=== PATIENT | female | born 2005 | race African-American/Black ===

== ENCOUNTER 2025-04-21 17:33 | Emergency (ER) | payer MEDICAID ==
[~2025-04-21] VITALS: Ht 167.6 cm; Wt 72.2 kg
[2025-04-21 18:21] VITALS: PULSE 112; RESP 13; O2SAT 96
[2025-04-21 19:28] LABS: Hematocrit 42.6 % (36.0-46.0); Hemoglobin 14.2 g/dL (12.2-16.2); Mean Corpuscular Hemoglobin 27.5 pg (28.0-32.0); Mean Corpuscular Volume 82.6 fL (80.0-100.0); Nucleated Red Blood Cells % 0.1 %
[2025-04-21 19:34] LABS: Chloride 105 mmol/L (98-107); Potassium 4.1 mmol/L (3.5-5.1); Sodium 138 mmol/L (136-145)
[2025-04-21 19:35] LABS: Anion Gap 11 (5-15); Calcium 10.2 mg/dL (8.7-10.4); Carbon Dioxide 22 mmol/L (20-31)
[2025-04-21 19:40] LABS: BUN/Creatinine Ratio 13.0 (10.0-20.0); Blood Urea Nitrogen 13 mg/dL (9-23)
[2025-04-21 19:41] LABS: Glucose 127 mg/dL (74-106)
[2025-04-21 19:42] LABS: Acetaminophen < 2.0 UG/ML (10.0-20.0); Salicylate < 3.0 mg/dL (-30)
--- NOTE | 2025-04-21 19:55 | ED.PDOC ---
Psychiatric HPI Comments 19 year-old female presents to the ED for overdose with symptoms of N/V S/P ingestion of Ibuprofen around 1700 today. Patient reports ingesting an unknown quantity of prescribed Ibuprofen medication, roughly 5+ capsules. Patient reports SI, with intent to harm herself. Patient is emotional upon evaluation at this time, but denies further symptoms of dizziness, weakness, fever, abdominal pain, or chest pain. Chief Complaint: Overdose Time Seen by MD: 18:45 Reviewed Notes: Medications, Allergies Information Source: Patient Mode of Arrival: Ambulatory Presents with: Suicidal Ideation Associated signs and symptoms: Nausea, Vomiting Past Medical History PAST MEDICAL HISTORY: Denies Surgical History: Denies all surgeries UNDERWRITING SPECIALIST History: No Pertinent UNDERWRITING SPECIALIST History Family History Family History: Reviewed,noncontributory to illness, No family hx of Cancer, No family hx of DM, No family hx of Heart deejay, No family hx of HTN, No family hx ofKidney deejay, No family hx of Liver deejay, No family hx of Lung deejay, No family hx of Stroke Social History Smoker: Non-Smoker Alcohol: Denies ETOH Use Drugs: Denies Drug Use Lives In: Home Constitutional: denies: chills, diaphoresis, fatigue, fever, malaise, sweats, weakness, others EENTM: denies: blurred vision, double vision, ear bleeding, ear discharge, ear drainage, ear pain, ear ringing, eye pain, eye redness, hearing loss, mouth pain, mouth swelling, nasal discharge, nose bleeding, nose congestion, nose pain, photophobia, tearing, throat pain, throat swelling, voice changes, others Respiratory: denies: cough, hemoptysis, orthopnea, SOB at rest, shortness of breath, SOB with excertion, stridor, wheezing, others Cardiovascular: denies: chest pain, dizzy spells, diaphoresis, Dyspnea on exertion, edema, irregular heart beat, left arm pain, lightheadedness, palpitations, PND, syncope, others Gastrointestinal: reports: nausea, vomiting; denies: abdomen distended, abdominal pain, blood streaked bowels, constipated, diarrhea, dysphagia, difficulty swallowing, hematemesis, melena, poor appetite, poor fluid intake, rectal bleeding, rectal pain, others Genitourinary: denies: abnormal vagina bleeding, burning, dyspareunia, dysuria, flank pain, frequency, hematuria, incontinence, pain, , vagina discharge, urgency, others Neurological: denies: dizziness, fainting, headache, left sided numbness, left sided weakness, numbness, paresthesia, pre-existing deficit, right sided numbness, right sided weakness, seizure, speech problems, tingling, tremors, weakness, others Musculoskeletal: denies: back pain, gout, joint pain, joint swelling, muscle pain, muscle stiffness, neck pain, others Integumetry: denies: bruises, change in color, change in hair/nails, dryness, laceration, lesions, lumps, rash, wounds, others Allergic/Immunocompromised: denies: Difficulty Healing, Frequent Infections, Hives, Itching, others Hematologic/Lymphatic: denies: anemia, blood clots, easy bleeding, easy bruising, swollen glands, others Endocrine: denies: excessive hunger, excessive sweating, excessive thirst, excessive urination, flushing, intolerance to cold, intolerance to heat, unexplained weight gain, unexplained weight loss, others Psychiatric: reports: suicidal; denies: anxiety, bipolar disorder, depression, hopeless, panic disorder, schizophrenia, sleepless, others All Other Systems: Reviewed and Negative Physical Exam Exam Comments Patient appears emotional General Appearance: Normal HEENT: Normal ENT Inspection, Pharynx Normal, TMs Normal Neck: Full Range of Motion, Non-Tender, Normal, Normal Inspection Respiratory: Chest Non-Tender, Lungs Clear, No Accessory Muscle Use, No Respiratory Distress, Normal Breath Sounds Cardiovascular: No Edema, No JVD, No Murmur, No Gallop, Normal Peripheral Pulses, Regular Rate/Rhythm Breast Exam: Deferred Gastrointestinal: No Organomegaly, Non Tender, No Pulsatile Mass, Normal Bowel Sounds, Soft Genitalia: Deferred Pelvic: Deferred Rectal: Deferred Extremities: No calf tenderness, Normal capillary refill, Normal inspection, Normal range of motion, Non-tender, No pedal edema Musculoskeletal : Apperance: Normal Neurologic: Alert, economics analyst II-XII nml as Tested, No Motor Deficits, Normal Affect, Normal Mood, No Sensory Deficits Cerebellar Function: Normal Reflexes: Normal Skin: Dry, Normal Color, Warm Lymphatic: No Adenopathy Was a procedure done? Was a procedure done?: No Psych Differential Dx OD Differential Dx: Anxiety, Depression, Drug Overdose, Accidental, Substance Abuse, Suicidal Attempt X-Ray, Labs, Meds, VS Vital Signs Date Time Temp Pulse Resp B/P (MAP) Pulse Ox O2 Delivery O2 Flow Rate FiO2 04/22/25 11:30 97.3 110 16 110/71 (84) 95 97.3 04/22/25 07:25 98.0 110 12 101/78 (86) 98.0 04/22/25 07:25 110 12 Room Air* 0 04/21/25 22:52 101 21 100/74 (83) 97 04/21/25 19:30 98.6 109 14 94/69 (77) 96 98.6 04/21/25 19:30 Room Air* 0 21 04/21/25 19:11 113 04/21/25 18:29 102 04/21/25 18:21 112 13 96 Room Air* 0 04/21/25 18:20 97.8 112 13 106/65 (79) 96 97.8 04/21/25 17:36 98.1 124 18 126/93 97 98.1 Lab Test 04/21/25 23:06 04/21/25 19:09 Range/Units Urine Test Negative Negative Urine Opiates Screen Neg NEGATIVE Urine Fentanyl Screen Neg NEGATIVE Urine Barbiturates Screen Neg NEGATIVE Urine Phencyclidine Screen Neg NEGATIVE Urine Amphetamines Screen Neg NEGATIVE Urine Benzodiazepines Screen Neg NEGATIVE Urine Cocaine Screen Neg NEGATIVE Urine Cannabinoids Screen Neg NEGATIVE White Blood Count 7.2 4.4-10.8 10^3/uL Red Blood Count 5.15 4.0-5.20 10^6/uL Hemoglobin 14.2 12.2-16.2 g/dL Hematocrit 42.6 36.0-46.0 % Mean Corpuscular Volume 82.6 80.0-100.0 fL Mean Corpuscular Hemoglobin 27.5 L 28.0-32.0 pg Mean Corpuscular Hemoglobin Concent 33.3 32.0-36.0 g/dL Red Cell Distribution Width 14.9 H 11.8-14.3 % Platelet Count 373 140-450 10^3/uL Mean Platelet Volume 6.9 6.9-10.8 fL Neutrophils (%) (Auto) 77.5 37.0-80.0 % Lymphocytes (%) (Auto) 12.8 10.0-50.0 % Monocytes (%) (Auto) 8.4 0.0-12.0 % Eosinophils (%) (Auto) 0.3 0.0-7.0 % Basophils (%) (Auto) 1.0 0.0-2.0 % Neutrophils # (Auto) 5.6 1.6-8.6 10 ^3/uL Lymphocytes # (Auto) 0.9 0.4-5.4 10 ^3/uL Monocytes # (Auto) 0.6 0-1.3 10 ^3/uL Eosinophils # (Auto) 0 0-0.8 10 ^3/uL Basophils # (Auto) 0.1 0-0.2 10 ^3/uL Nucleated Red Blood Cells 0.1 % Sodium Level 138 136-145 mmol/L Potassium Level 4.1 3.5-5.1 mmol/L Chloride Level 105 98-107 mmol/L Carbon Dioxide Level 22 20-31 mmol/L Anion Gap 11 5-15 Blood Urea Nitrogen 13 9-23 mg/dL Creatinine 1.00 0.550-1.02 mg/dL Glomerular Filtration Rate Calc 83 >90 mL/min BUN/Creatinine Ratio 13.0 10.0-20.0 Serum Glucose 127 H 74-106 mg/dL Calcium Level 10.2 8.7-10.4 mg/dL Salicylates Level < 3.0 -30 mg/dL Acetaminophen Level < 2.0 L 10.0-20.0 UG/ML Plasma/Serum Blood Alcohol < 3.0 <10 mg/dL X-Ray, Labs, Meds, VS Comment Previous history reviewed: N/A The following tests were ordered, and results were reviewed by me: CBC, CMP, Test, Blood Alcohol, Psych Consult Additional Information was gathered from interviewing the following independent historians: N/A I reviewed and agreed with the following test results read by other providers: N/A I discussed treatment and results with medical personnel and: Patient Comprehensive systems review obtained and negative except for what is stated in the HPI. Time of 1ST Reevaluation: 20:24 Reevaluation 1ST: Unchanged Patient Education/Counseling: Diagnosis, Treatment Family Education/Counseling: No Family Present Comments Patient reportedly took an unknown amount of Motrin. She has remained stable without any signs of GI discomfort. Her drug screen, alcohol level, aspirin level, acetaminophen level were all negative. Patient had received for her tele psych evaluation. The recommendation is to continue to observe the patient here and have another evaluation by tele psych in the morning. Patient is currently restful without any active symptoms. I was signed this patient out to Dr. Chandra at change of shift pending tele psych reassessment pt was signed out to Kyle Chandra. i reviewed the chart and according to RN documentations, pt left AMA Departure 1 Departure Time of Disposition: 21:19 Impression: Primary Impression: Suicidal behavior Disposition: LEFT AGAINST MEDICAL ADVICE Condition: Other (unknown) Discharged With: Self, Relative (Sibling) Critical Care Note Critical Care Time?: Yes (55 min-critical care time only) Critical care comment: Total critical care time: Approximately 55 minutes Due to a high probability of clinically significant, life threatening deterioration, the patient required my highest level of preparedness to int ervene emergently and I personally spent this critical care time directly and personally managing the patient. This critical care time included obtaining a history; examining the patient; pulse oximetry; ordering and review of studies; arranging urgent treatment with development of a management plan; evaluation of patient's response to treatment; frequent reassessment; and, discussions with other providers. This critical care time was performed to assess and manage the high probability of imminent, life-threatening deterioration that could result in multi-organ failure. It was exclusive of separately billable procedures and treating other patients. Stability Stability form required: No Heart Score Heart Score: Heart Score Response (Comments) Value History N/A 0 EKG N/A 0 Age N/A 0 Risk Factors N/A 0 Troponin N/A 0 Total 0 I personally scribed for MALINA GARNER MD (ARIELA) on 04/21/25 at 19:55. Electr onically submitted by Aishwarya Edwards (SHAHANA). I personally scribed for MALINA GARNER MD (CICI) on 04/21/25 at 19:56. Lora ctronically submitted by Aishwarya Edwards (SHAHANA). I personally scribed for MALINA GARNER MD (CICI) on 04/21/25 at 20:26. Electronically submitted by Aishwarya Edwards (SHAHANA). I personally scribed for MALINA GARNER MD (CICI) on 04/21/25 at 20:45. Electronically submitted by Aishwarya Edwards (SHAHANA). MALINA GARNER MD Apr 21, 2025 19:55
[2025-04-21 23:30] LABS: Barbiturate Scree,Urine Neg (NEGATIVE)
[2025-04-21 23:32] LABS: Amphetamine Screen, Urine Neg (NEGATIVE); Benzodiazephine Screen, Urine Neg (NEGATIVE); Cannabinoid Screen, Urine Neg (NEGATIVE); Cocaine Screen, Urine Neg (NEGATIVE); Opiate Scree,Urine Neg (NEGATIVE); Phencyclidine Screen, Urine Neg (NEGATIVE)
--- NOTE | 2025-04-22 01:39 | DVHINCON2 ---
Date of Service if different f: Apr 22, 2025 Time of Service: 00:47 Consult Consult Note PSYCHIATRY ED NEW CONSULT HPI: 19 yo pt with PPH of anxiety presents to ED for safety, psychiatric stabilization, and possible med initiation in setting of SA via intentional drug OD of ~ 7 tabs of ibuprofen 600 mg. Psychiatry consulted for safety evaluation and recommendations in context of current presentation Pt reports over past several weeks experiencing worsening depressed mood, negative thoughts, loss of interest, decreased energy, low self-worth, amotivation, emotional dysregulation, anxiety, intrusive thoughts, and irritability. Also intermittent fleeting SI that worsened today resulting in SA via intentional drug OD of ~ 7 tabs of ibuprofen 600 mg. Identifies primary stress as strained r/s with BF, worries about lack of housing, limited support system, and financial strains. Denies HI/AVH/paranoia/catatonic/manic/dissociative symptoms Does not have active outpt MH services established at this time Currently not on any psychotropic agents ESTEVAN hx: Denies ETOH, THC or IDU SH: Single, no children, employed as food prep worker, lives with BF/family, some support system noted (immediate family). No known trauma hx FH: Denies FH of psych hospitalizations, suicide attempts, or completed suicides PMH: No acute medical/chronic pain issues, hx of seizures/TBI, HIV/hep C, cardiac dz, or recent head injuries, NKDA Denies hx of SIB/SA/PSG or prior psych hospitalizations/5150 holds. Denies history of violence, aggression, or assaultive behaviors. Denies any legal problems. Does not have access to firearms. Identifies self as PPF MSE: General Appearance/Behavior: Alert/awake; appears stated age, piercings/tattoos, fair grooming/hygiene; calm/polite and cooperative, fair eye contact, no PMA/PMR Speech: coherent, rrr Thought Process: L/L/GD Thought Content: Abnormal Thoughts/Perceptions: denies dissociative symptoms Homicidality / Violent Thoughts: adamantly denies HI Suicidality: adamantly denies SI Hallucinations: denies AVTH Delusions: denies paranoia, persecutory, or grandiose delusions Obsessions /compulsions: None Judgment/Insight: fair/fair Mood & Affect: "okay" with mood-congruent, somewhat restricted/appropriate Orientation: oriented x 3 Attention/Concentration: appears intact Cognition: grossly intact Assessment: 19 yo pt with PPH of anxiety presents to ED for safety, psychiatric stabilization, and possible med initiation in setting of SA via intentional drug OD of ~ 7 tabs of ibuprofen 600 mg S/p concerning SA, medically cleared in ED Currently denies SI/HI/AVH. No hx of SA/SIB/violence or prior psych hospitalizations is reassuring. No overt manic, psychotic, MDD, cognitive, dissociative, panic, OCD, PTSD, or somatic symptoms noted. Does not show any signs of immediate danger to self/others or GD that would necessitate 5150 or involuntary psych admission. However offered voluntary psych hospitalization but pt declined at this time, rather expressed interest in further ED observation/reevaluation in AM to ensure SI does not resurface upon awakening Hence, recommend overnight ED observation and psych reassessment in AM WITH FAMILY MEMBER or BF at bedside to assess for ongoing safety/psychiatric stabilization and to determine if higher level of care (i.e inpt psych hospitalization) or 5150 hold is warranted If no acute/problematic events overnight and pt continues to show improved J/I, appears hopeful and future-oriented, participates in safety plan, and continues to deny any SI and no safety concerns noted/expressed by family member/BF, can consider discharge back to current residence with resources for therapy Psychotropic med initiation not clinically indicated at this time Pt verbalized understanding and is receptive to above tx plan Primary Diagnosis: Adjustment disorder with depressed mood and anxiety. Depressive disorder unspecified. THC use d/o This case was discussed with ED nurse/provider and all parties in agreement with above tx plan Beny Doll MD Plan discussed with: Patient BENY DOLL MD Apr 22, 2025 01:39
[2025-04-22 07:25] VITALS: PULSE 110; RESP 12
--- NOTE | 2025-04-22 10:04 | ECG ---
[facility] Test Date: 2025-04-21 Test Time: 18:29:58 Pat Name: SISSY PROCTOR Department: ED Room: Gender: F Senior Courtroom Clerk: : 2005 Requested By: MALINA GARNER Order Number: [id number] Reading MD: Nathanael Slater Measurements Intervals [place] Rate: 102 P: 51 NC: 153 QRS: 66 QRSD: 75 T: 33 QT: 318 QTc: 415 Interpretive Statements Sinus tachycardia Electronically Signed On 04-22-2025 15:28:57 PST by Nathanael Slater Please click the below link to view image of tracing.
[2025-04-22 11:30] VITALS: BP 110/71; PULSE 110; RESP 16; TEMP 97.3; O2SAT 95
--- NOTE | 2025-04-22 13:22 | DVHINCON2 ---
Date of Service if different f: Apr 22, 2025 Time of Service: 13:19 Consultation ([facility]) Labs Laboratory Tests Test 04/21/25 19:09 04/21/25 23:06 White Blood Count 7.2 10^3/uL (4.4-10.8) Red Blood Count 5.15 10^6/uL (4.0-5.20) Hemoglobin 14.2 g/dL (12.2-16.2) Hematocrit 42.6 % (36.0-46.0) Mean Corpuscular Volume 82.6 fL (80.0-100.0) Mean Corpuscular Hemoglobin 27.5 pg (28.0-32.0) Mean Corpuscular Hemoglobin Concent 33.3 g/dL (32.0-36.0) Red Cell Distribution Width 14.9 % (11.8-14.3) Platelet Count 373 10^3/uL (140-450) Mean Platelet Volume 6.9 fL (6.9-10.8) Neutrophils (%) (Auto) 77.5 % (37.0-80.0) Lymphocytes (%) (Auto) 12.8 % (10.0-50.0) Monocytes (%) (Auto) 8.4 % (0.0-12.0) Eosinophils (%) (Auto) 0.3 % (0.0-7.0) Basophils (%) (Auto) 1.0 % (0.0-2.0) Neutrophils # (Auto) 5.6 10 ^3/uL (1.6-8.6) Lymphocytes # (Auto) 0.9 10 ^3/uL (0.4-5.4) Monocytes # (Auto) 0.6 10 ^3/uL (0-1.3) Eosinophils # (Auto) 0 10 ^3/uL (0-0.8) Basophils # (Auto) 0.1 10 ^3/uL (0-0.2) Nucleated Red Blood Cells 0.1 % Sodium Level 138 mmol/L (136-145) Potassium Level 4.1 mmol/L (3.5-5.1) Chloride Level 105 mmol/L (98-107) Carbon Dioxide Level 22 mmol/L (20-31) Anion Gap 11 (5-15) Blood Urea Nitrogen 13 mg/dL (9-23) Creatinine 1.00 mg/dL (0.550-1.02) Glomerular Filtration Rate Calc 83 mL/min (>90) BUN/Creatinine Ratio 13.0 (10.0-20.0) Serum Glucose 127 mg/dL (74-106) Calcium Level 10.2 mg/dL (8.7-10.4) Salicylates Level < 3.0 mg/dL (-30) Acetaminophen Level < 2.0 UG/ML (10.0-20.0) Plasma/Serum Blood Alcohol < 3.0 mg/dL (<10) Urine Test Negative (Negative) Urine Opiates Screen Neg (NEGATIVE) Urine Fentanyl Screen Neg (NEGATIVE) Urine Barbiturates Screen Neg (NEGATIVE) Urine Phencyclidine Screen Neg (NEGATIVE) Urine Amphetamines Screen Neg (NEGATIVE) Urine Benzodiazepines Screen Neg (NEGATIVE) Urine Cocaine Screen Neg (NEGATIVE) Urine Cannabinoids Screen Neg (NEGATIVE) Vitals Vital Signs Date Time Temp Pulse Resp B/P (MAP) Pulse Ox O2 Delivery O2 Flow Rate FiO2 04/22/25 11:30 97.3 110 16 110/71 (84) 95 97.3 04/22/25 07:25 Room Air* 0 21 PSYCHIATRY FOLLOW UP NOTE SUBJECTIVE On reevaluation, pt says she had been feeling down relating to financial stress and feeling she has few people she can count on. She felt acutely depressed and suicidal just a day. She had not done research. She did believe taking the 7 tabs or Ibuprofen would kill her. Pt continues to feel sad. She denies neo SI in the moment, but know she needs help, and wants help. Pt denies use of drugs and alcohol. She has no current established OP care or therapy. She cannot completely contract for her safety if discharged. She does deny access to firearms. Pts boyfriend is at bedside. He is concerned for her safety. He says she has recently been expressing SI quite a bit. He is not sure if she will be safe if discharged from the hospital. OBJECTIVE Patient is an adult woman, awake and alert, with fair grooming. She is coop erative and appropriately engaged. Speech is normal in rate, volume, and prosody. Mood is described as sad/down, with affect dysphoric and congruent. Thought process is linear and goal-directed. Thought content notable for recent suicidal ideation and a recent suicide attempt via ingestion of 7 ibuprofen tablets with belief it could be lethal; she denies active suicidal ideation at the moment but endorses ongoing sadness and inability to fully contract for safety if discharged. No homicidal ideation. No overt delusions. No perceptual disturbances endorsed. Insight is fair (acknowledges need for help), and judgment is impaired as evidenced by recent suicide attempt and limited ability to maintain safety outside the hospital. Cognition appears grossly intact during interview. ASSESSMENT Patient presents after a recent suicide attempt by ingestion in the setting of acute depressive symptoms, financial stress, limited supports, and lack of established outpatient mental health care. Although she denies active suicidal ideation at present, she continues to feel sad, cannot fully contract for safety, and collateral from boyfriend indicates she has been expressing suicidal ideation frequently and he is concerned she would not be safe if discharged. Given the recent attempt, ongoing dysphoria, inadequate outpatient supports, and inability to ensure safety in a less restrictive setting, she meets criteria for involuntary hold for danger to self. RECOMMENDATIONS Legal: Initiate 5150 for Danger to Self based on recent suicide attempt, ongoing depressive symptoms, inability to fully contract for safety, and collateral corroborating recent recurrent SI. Disposition: Refer for inpatient psychiatric admission for safety, diagnostic clarification, and stabilization. Medications: Medication initiation and/or adjustments may be considered inpatient (e.g., antidepressant and/or anxiolytic strategy as clinically indicated) after full evaluation, monitoring, and safety planning; defer initiation in ED pending transfer unless clinically necessary. Safety/Monitoring: Maintain close observation/appropriate suicide precautions while awaiting placement. Collateral/Aftercare: Continue to obtain collateral as needed; upon stabilization, ensure linkage to outpatient psychiatry/therapy and social work supports addressing financial stressors and safety planning. JASMIN MCDONOUGH MD Apr 22, 2025 13:22
== END 2025-04-22 17:17 | disposition left against medical advice (07) ==
LOC: ER 17:33
DX: R45.851 Suicidal ideations (principal); T39.311A Poisoning by propionic acid derivatives, accidental (unintentional), initial encounter; Z59.869 Financial insecurity, unspecified; Z86.59 Personal history of other mental and behavioral disorders
CPT/HCPCS: 36415; 80048; 80307; 80320; 80329; 81025; 85025; 93005